=== PATIENT | male | born 1990 | race Caucasian/White ===

== ENCOUNTER 2020-04-13 19:49 | Emergency (ER) | payer OTHER, SELFPAY ==
[2020-04-13 19:51] VITALS: BP 151/91; PULSE 127; RESP 12; TEMP 36.1; O2SAT 98; BMI 21.5
--- NOTE | 2020-04-13 20:31 | ED.VIS.GEN ---
History of Present Illness Chief Complaint: Rash Detail of Chief Complaint: Low platelet count Informant: Patient Narrative: Patient states he received a phone call from his PCP serge stating that his platelet count was very low at 19. Patient states that he has noticed increased bruising over the past 3 weeks or so. Last night when he is brushing his teeth he started to get bleeding from the gums and it continued to bleed overnight. He was seen by his PCP today and blood work was sent. Patient states that he got a phone call from his doctor just advising him to go to the nearest ER with a medical records auditor available if his gums were still bleeding. Patient denies headache. He denies recent illness. - Past Medical History (1) IBS (irritable bowel syndrome) Status: Chronic Past Medical History - Allergies and Home Meds Allergies/Adverse Reactions: Allergies No Known Allergies Allergy (Verified 04/13/20 19:50) Primary Care Physician: Andi Zaidi MD [Primary Care Provider] - Lives: With Family Review of Systems General: Denies: Chills, Fever Eyes: Denies: Visual changes - bilaterally ENT: Denies: Bilateral ear pain Cardiovascular: Denies: Chest pain Respiratory: Denies: Dyspnea, Cough Gastrointestinal: Denies: Abdominal pain, Nausea, Vomiting, Diarrhea Neurological: Denies: Headache Hematologic: Reports: - - Increased bruising and bleeding from gums Physical Exam Vital Signs/Narrative: Vital Signs Temp Pulse Resp BP Pulse Ox 04/13/20 19:51 97 F L 127 H 12 151/91 H 98 Inital Vital Signs reviewed: Yes General: Well nourished, Well developed Head: Normocephalic ENT: Moist mucous membranes, - - Slight blood noted along the left lower gums Neck: Supple Cardiovascular: Regular rate, Regular rhythm Respiratory: No distress, CTA bilaterally Abdomen: Soft, Nontender Skin: - - Old appearing ecchymosis noted on the right forearm. Petechiae noted over the shins. Neurological: Alert, Oriented x3 Psychological: Normal affect Diagnostic/Tx/Re-eval Laboratory Results 04/13/20 04/13/20 04/13/20 20:30 20:30 20:30 WBC Cancelled Corrected WBC Cancelled RBC Cancelled Hgb Cancelled Hct Cancelled MCV Cancelled MCH Cancelled MCHC Cancelled RDW Std Deviation Cancelled RDW Coeff of [place] Cancelled Plt Count Cancelled MPV Cancelled Immature Gran % (Auto) Cancelled Neut % (Auto) Cancelled Lymph % (Auto) Cancelled [place] % (Auto) Cancelled Eos % (Auto) Cancelled Baso % (Auto) Cancelled Absolute Neuts (auto) Cancelled Absolute Lymphs (auto) Cancelled Total Counted Cancelled Neutrophils % (Manual) Cancelled Band Neutrophils % Cancelled Lymphocytes % (Manual) Cancelled Monocytes % (Manual) Cancelled Eosinophils % (Manual) Cancelled Basophils % (Manual) Cancelled Metamyelocytes % Cancelled Myelocytes % Cancelled Promyelocytes % Cancelled Blast Cells % Cancelled Plasma Cell % (Manual) Cancelled Other Cells % Cancelled Nucleated RBC % Cancelled Nucleated RBCs/100 WBC Cancelled Differential Comment Cancelled Diff Path Review Cancelled Hypersegmented Neuts Cancelled Atypical Lymphocytes Cancelled Reactive Lymphocytes Cancelled Smudge Cells Cancelled Toxic Granulation Cancelled Toxic Vacuolation Cancelled Dohle Bodies Cancelled Eddi Rods Cancelled Platelet Estimate Cancelled Plt Morphology Comment Cancelled RBC Morphology Cancelled Polychromasia Cancelled Hypochromasia Cancelled Poikilocytosis Cancelled Basophilic Stippling Cancelled Anisocytosis Cancelled Microcytosis Cancelled Macrocytosis Cancelled Spherocytes Cancelled Sickle Cells Cancelled Target Cells Cancelled Tear Drop Cells Cancelled Ovalocytes Cancelled Stomatocytes Cancelled [place] Bodies Cancelled Sade Cells Cancelled Bite Cells Cancelled Crenated Cell Cancelled Acanthocytes (Spur) Cancelled Rouleaux Cancelled Schistocytes Cancelled PT Cancelled INR Cancelled APTT Cancelled Sodium 137 Potassium 4.6 Chloride 107 Carbon Dioxide 26.0 Anion Gap 4 L BUN 15 Creatinine 1.00 Estim Creat Clear Calc 109.86 Est GFR (MDRD) Af Amer 115 Est GFR (MDRD) Non-Af 95 BUN/Creatinine Ratio 15.0 Glucose 105 Calcium 9.3 04/13/20 04/13/20 21:30 21:30 WBC 3.6 L Corrected WBC RBC 3.69 L Hgb 12.2 L Hct 33.9 L MCV 91.9 MCH 33.1 H MCHC 36.0 RDW Std Deviation 48.2 H RDW Coeff of [place] 14.6 Plt Count 14 L* MPV 13.2 H Immature Gran % (Auto) Neut % (Auto) Not Reportable Lymph % (Auto) [place] % (Auto) Eos % (Auto) Baso % (Auto) Absolute Neuts (auto) 1.3 L Absolute Lymphs (auto) 2.12 Total Counted 100 Neutrophils % (Manual) 36 L Band Neutrophils % Lymphocytes % (Manual) 59 H Monocytes % (Manual) 3 Eosinophils % (Manual) 2 Basophils % (Manual) Metamyelocytes % Myelocytes % Promyelocytes % Blast Cells % Plasma Cell % (Manual) Other Cells % Nucleated RBC % Nucleated RBCs/100 WBC Differential Comment Diff Path Review May foll Hypersegmented Neuts Atypical Lymphocytes Reactive Lymphocytes Smudge Cells Toxic Granulation Toxic Vacuolation Dohle Bodies Eddi Rods Platelet Estimate MKD DEC Plt Morphology Comment RBC Morphology N CHROM Polychromasia Hypochromasia Poikilocytosis Basophilic Stippling Anisocytosis 1+ Microcytosis Macrocytosis Spherocytes Sickle Cells Target Cells Tear Drop Cells Ovalocytes Stomatocytes Bell-[place] Bodies [place] Cells Bite Cells Crenated Cell Acanthocytes (Spur) Rouleaux Schistocytes PT 17.9 H INR 1.5 APTT 29.2 Sodium Potassium Chloride Carbon Dioxide Anion Gap BUN Creatinine Estim Creat Clear Calc Est GFR (MDRD) Af Amer Est GFR (MDRD) Non-Af BUN/Creatinine Ratio Glucose Calcium - Medical Decision Making Patient was discussed with Dr. Corona, on-call for [facility] hematology. I was unable to reach [facility]. Dr. Quiroz feels the patient should be transferred to a tertiary care center for further treatment. Discussion with the patient and father at bedside they would prefer to go to [facility]. ED Disposition - Plan for ED Patient: Disposition: [facility] Diagnosis: Thrombocytopenia Referrals: Andi Zaidi MD [Primary Care Provider] -
[2020-04-13 21:12] LABS: Anion Gap 4 (5-15); BUN 15 mg/dL (7-18); Calcium,Total 9.3 mg/dL (8.5-10.1); Chloride 107 mmol/L (98-107); EST Glomerular Filtration Rate 95 mL/min (>60); Est Glom Filt Rate - Afr Amer 115 mL/min (>60); Estimated Creatinine Clearance 109.86 ml/min; Glucose 105 mg/dL (74-106); Potassium 4.6 mmol/L (3.5-5.1); Sodium Level 137 mmol/L (136-145)
[2020-04-13 21:42] LABS: Hematocrit 33.9 % (40-54); Hemoglobin 12.2 g/dL (13.0-16.5); Mean Corpuscular Hgb 33.1 pg (27.0-32.0); Mean Corpuscular Volume 91.9 fL (80-94); Mean Platelet Vol. 13.2 fl (6.2-12.0); POSITIVE COUNT YES; POSITIVE MORPHOLOGY YES; RBC Distribution Width CV 14.6 % (11.6-14.6); RBC Distribution Width SD 48.2 fl (35.1-43.9); Red Blood Count 3.69 M/mm3 (4.6-6.2); White Blood Count 3.6 K/mm3 (4.4-11.0)
[2020-04-13 21:50] LABS: International Normalized Ratio 1.5; Partial Thromboplast Time 29.2 Seconds (24.1-36.2); Prothrombin Time (Protime)PT. 17.9 SECONDS (11.7-14.9)
[2020-04-13 22:14] VITALS: BP 122/9; PULSE 117; RESP 16; O2SAT 97
[2020-04-13 22:38] LABS: Total Cells Counted 100 (MANUAL DIFF)
[2020-04-13 22:39] LABS: Anisocytosis 1+; Red Cell Morphology N CHROM NORMAL (NORM C&C)
[2020-04-13 22:40] LABS: Differential Indicated MANUAL DIFF; Platelet Count 14 K/mm3 (150-450); Platelet Estimate MKD DEC (ADEQ)
[2020-04-13 22:44] LABS: Eosinophil 2 % (0-5); Lymphocyte 59 % (19-41); Monocyte 3 % (0-10); Neutrophil-Segmented 36 % (47-70)
[2020-04-13 22:45] LABS: Absolute Neutrophil Count 1.3 X10^3/uL (2.0-7.7)
[2020-04-13 22:46] LABS: Absolute Lymphocyte Count 2.12 X10^3/uL (0.83-4.51)
[2020-04-14 00:18] VITALS: BP 147/104; PULSE 121; RESP 14; O2SAT 98
[2020-04-14 00:51] LABS: Internal QC Validated? YES +Cl - CLEAR BKGD; Monotest Negative (Negative)
[2020-04-14 01:31] VITALS: BP 147/99; PULSE 110; RESP 17; O2SAT 98
[2020-04-14 14:01] LABS: Pathologist Review Reviewed
== END 2020-04-14 02:00 | disposition short-term general hospital (02) ==
PROVIDERS: Emergency Provider Emergency Medicine; PCP Family Medicine
DX: D69.6 Thrombocytopenia, unspecified (principal); K58.9 Irritable bowel syndrome, unspecified
CPT/HCPCS: 80048; 85025; 85610; 85730; 86308; 99285